=== PATIENT | male | born 1950 | race Caucasian/White ===

== ENCOUNTER 2024-01-10 15:58 | Inpatient (IN) | payer OTHER, MEDICAID ==
[~2024-01-10] VITALS: Ht 170.2 cm; Wt 81.7 kg
[2024-01-10 16:21] VITALS: BP 154/67; PULSE 67; RESP 18; TEMP 98.6; O2SAT 99
[2024-01-10] MEDS ORDERED: SERT100T PO (16:52)
[2024-01-10] MEDS ORDERED: MEMA5TAB15 PO (16:52)
[2024-01-10] MEDS ORDERED: ATOR40TA40 PO (16:52)
[2024-01-10] MEDS ORDERED: ACET-10509 PO (16:52)
[2024-01-10] MEDS ORDERED: AMLO10TA87 PO (16:52)
[2024-01-10] MEDS ORDERED: BISA-213 RC (16:52)
[2024-01-10] MEDS ORDERED: ASPI-1822 PO (16:52)
[2024-01-10] MEDS ORDERED: FLEPED RC (16:52)
[2024-01-10] MEDS ORDERED: ACET-2619 PO (16:52)
[2024-01-10] MEDS ORDERED: MAGN400S60 PO (16:52)
[2024-01-10] MEDS ORDERED: PANT40EC PO (16:52)
[2024-01-10] MEDS ORDERED: DIVA250T PO (16:52)
[2024-01-10 17:52] LABS: BASOPHILS % (AUTO) 0.4 % (0.0-2.0); EOSINOPHILS # (AUTO) 0.5 K/uL (0-0.4); EOSINOPHILS % (AUTO) 5.2 % (0.0-4.0); HEMOGLOBIN 14.6 g/dL (12.0-18.0); LYMPHOCYTES # (AUTO) 3.3 K/uL (2.0-11.5); LYMPHOCYTES % (AUTO) 33.2 % (20.5-51.1); MEAN CORPUSCULAR HEMOGLOBIN 30 pg (27-31); MEAN CORPUSCULAR HGB CONC 32 g/dL (33-37); MEAN CORPUSCULAR VOLUME 93.9 fL (80-94); NEUTROPHILS # (AUTO) 5.1 K/uL (1.8-7.7); NEUTROPHILS % (AUTO) 51.2 % (42.2-75.2); PLATELET COUNT (AUTO) 192 K/uL (140-450); RED CELL DISTRIBUTION WIDTH 14.7 % (11.6-13.7); WHITE BLOOD COUNT (AUTO) 9.9 K/uL (4.8-10.8)
[2024-01-10 18:06] LABS: ALANINE AMINOTRANSFERASE 39 U/L (12-78); ALBUMIN 3.6 g/dL (3.4-5.0); ALKALINE PHOSPHATASE 166 U/L (50-136); ASPARTATE AMINOTRANSFERASE 26 U/L (15-37); BILIRUBIN,DIRECT 0.1 mg/dL (0.0-0.3); CREATINE KINASE, TOTAL 65 U/L (39-308); TOTAL BILIRUBIN 0.2 mg/dL (0.0-1.0); TOTAL PROTEIN, SERUM 8.3 g/dL (6.4-8.2)
[2024-01-10 18:19] LABS: LACTIC ACID 1.1 mmol/L (0.4-2.0)
[2024-01-10 18:32] LABS: CARBON DIOXIDE 27.9 mmol/L (21-32); CHLORIDE 102 mmol/L (98-107); GLUCOSE 100 mg/dL (74-106); POTASSIUM 3.9 mmol/L (3.5-5.1); SODIUM SERUM 139 mmol/L (136-145); UREA NITROGEN, BLOOD 22 mg/dL (7-18)
[2024-01-10 19:22] LABS: APPEARANCE,URINE CLEAR (CLEAR); BILIRUBIN,URINE NEGATIVE (NEGATIVE); BLOOD, URINE NEGATIVE (NEGATIVE); COLOR,URINE YELLOW (YELLOW); LEUKOCYTE ESTERASE ,URINE NEGATIVE (NEGATIVE); NITRITE, URINE POSITIVE (NEGATIVE); PROTEIN,URINE NEGATIVE (NEGATIVE); UGLUCOSE NEGATIVE (NEGATIVE); UROBILINOGEN,URINE 0.2 EU/dL (0.2 - 1)
[2024-01-10 19:34] LABS: BACTERIA,URINE FEW /HPF (None Seen); RBC,URINE 0-5 /HPF (0-5); SQUAMOUS EPITHELIAL CELL,UR 0-3 (FEW) /LPF (0-3 (FEW)); WBC,URINE 0-5 /HPF (0-5)
[2024-01-10] MEDS ORDERED: ACETAMINOPHEN 325 MG TAB PO PRN (20:10)
[2024-01-10] MEDS ORDERED: ONDANSETRON 4 MG/2 ML VIAL IVP PRN (20:10)
[2024-01-10] MEDS: NACL 0.9% 1,000 ML IV ONE (20:31)
[2024-01-10] MEDS: NACL 0.9% 1,000 ML IV SCH (20:45)
[2024-01-10] MEDS ORDERED: CRUSHER, PILL MC ONE (21:04)
[2024-01-10] MEDS: ATORVASTATIN 20 MG TAB PO SCH (21:08)
[2024-01-10] MEDS: MEMANTINE 10 MG TAB PO SCH (21:09)
[2024-01-10 21:35] VITALS: PULSE 70; RESP 18; O2SAT 97
[2024-01-11] VITALS: BP 133/65; PULSE 70; RESP 18; TEMP 97.2; O2SAT 97
[2024-01-11 04:00] VITALS: BP 125/80; PULSE 62; RESP 16; TEMP 97.4; O2SAT 95
[2024-01-11 05:42] LABS: ANION GAP 11.5 (8-16); CALCIUM 8.7 mg/dL (8.5-10.1); CARBON DIOXIDE 28.5 mmol/L (21-32); CHLORIDE 106 mmol/L (98-107); CREATININE 0.9 mg/dL (0.6-1.3); GLUCOSE 75 mg/dL (74-106); SODIUM SERUM 142 mmol/L (136-145); UREA NITROGEN, BLOOD 19 mg/dL (7-18)
[2024-01-11 05:47] LABS: BASOPHILS % (AUTO) 0.5 % (0.0-2.0); EOSINOPHILS # (AUTO) 0.4 K/uL (0-0.4); EOSINOPHILS % (AUTO) 5.6 % (0.0-4.0); HEMATOCRIT 39.9 % (36-52); LYMPHOCYTES # (AUTO) 2.9 K/uL (2.0-11.5); LYMPHOCYTES % (AUTO) 36.8 % (20.5-51.1); MEAN CORPUSCULAR HEMOGLOBIN 30 pg (27-31); MEAN CORPUSCULAR HGB CONC 33 g/dL (33-37); MEAN CORPUSCULAR VOLUME 92.2 fL (80-94); MONOCYTES # (AUTO) 0.9 K/uL (0.8-1.0); MONOCYTES % (AUTO) 11.5 % (1.7-9.3); NEUTROPHILS # (AUTO) 3.6 K/uL (1.8-7.7); NEUTROPHILS % (AUTO) 45.6 % (42.2-75.2); PLATELET COUNT (AUTO) 188 K/uL (140-450); RED BLOOD CELL COUNT(AUTO) 4.32 MIL/uL (4.20-6.10); RED CELL DISTRIBUTION WIDTH 14.2 % (11.6-13.7)
[2024-01-11 08:00] VITALS: BP 151/75; PULSE 58; RESP 20; TEMP 97.8; O2SAT 98
[2024-01-11] MEDS ORDERED: DIVALPROEX SODIUM 125 MG PO SCH (09:00)
[2024-01-11] MEDS ORDERED: PANTOPRAZOLE 40 MG TABEC PO SCH (09:00)
[2024-01-11] MEDS: ASPIRIN 81 MG TAB.CHEW PO SCH (09:52)
[2024-01-11] MEDS: DIVALPROEX SPRINKLES 125 MG CAPDR PO SCH (09:53)
[2024-01-11] MEDS: amLODIPine 5 MG TAB PO SCH (09:53)
[2024-01-11] MEDS: PANTOPRAZOLE 40 MG TABEC PO SCH (09:53)
[2024-01-11 12:00] VITALS: TEMP 98
[2024-01-11 16:00] VITALS: BP 138/82; PULSE 64; RESP 20; TEMP 99.2; O2SAT 97
[2024-01-11 20:00] VITALS: BP 137/73; PULSE 67; RESP 18; TEMP 97.6; O2SAT 96
[2024-01-12 04:00] VITALS: BP 128/62; PULSE 60; RESP 18; TEMP 96.9; O2SAT 95
[2024-01-12 05:31] LABS: BASOPHILS % (AUTO) 0.4 % (0.0-2.0); EOSINOPHILS # (AUTO) 0.4 K/uL (0-0.4); EOSINOPHILS % (AUTO) 4.8 % (0.0-4.0); HEMATOCRIT 38.8 % (36-52); HEMOGLOBIN 12.8 g/dL (12.0-18.0); LYMPHOCYTES # (AUTO) 3.8 K/uL (2.0-11.5); LYMPHOCYTES % (AUTO) 41.8 % (20.5-51.1); MEAN CORPUSCULAR HEMOGLOBIN 30 pg (27-31); MEAN CORPUSCULAR HGB CONC 33 g/dL (33-37); MEAN CORPUSCULAR VOLUME 91.9 fL (80-94); MONOCYTES # (AUTO) 0.9 K/uL (0.8-1.0); MONOCYTES % (AUTO) 10.4 % (1.7-9.3); NEUTROPHILS # (AUTO) 3.9 K/uL (1.8-7.7); NEUTROPHILS % (AUTO) 42.6 % (42.2-75.2); PLATELET COUNT (AUTO) 198 K/uL (140-450); RED BLOOD CELL COUNT(AUTO) 4.22 MIL/uL (4.20-6.10); RED CELL DISTRIBUTION WIDTH 14.4 % (11.6-13.7); WHITE BLOOD COUNT (AUTO) 9.1 K/uL (4.8-10.8)
[2024-01-12 05:46] LABS: ANION GAP 11.8 (8-16); CALCIUM 9.1 mg/dL (8.5-10.1); CARBON DIOXIDE 27.9 mmol/L (21-32); CHLORIDE 104 mmol/L (98-107); GLUCOSE 85 mg/dL (74-106); POTASSIUM 3.7 mmol/L (3.5-5.1); SODIUM SERUM 140 mmol/L (136-145); UREA NITROGEN, BLOOD 20 mg/dL (7-18)
[2024-01-12 08:00] VITALS: BP 153/83; PULSE 60; RESP 20; TEMP 97.4; O2SAT 95
[2024-01-12 12:00] VITALS: BP 153/83; PULSE 60; RESP 20; TEMP 97.4; O2SAT 95
[2024-01-12 16:00] VITALS: BP 155/85; PULSE 66; RESP 20; TEMP 97.6; O2SAT 98
[2024-01-12 20:00] VITALS: BP 140/76; PULSE 62; PULSE 65; PULSE 76; RESP 18; RESP 20; TEMP 98.9; O2SAT 97
[2024-01-13] VITALS: BP 139/70; PULSE 72; RESP 19; TEMP 97.5; O2SAT 99
[2024-01-13 04:00] VITALS: BP 145/75; PULSE 76; RESP 18; TEMP 98.5; O2SAT 99
[2024-01-13 08:00] VITALS: BP 173/88; PULSE 58; RESP 16; TEMP 97.8; O2SAT 96
[2024-01-13] MEDS: CLONIDINE HYDROCHLORIDE 0.1 MG TAB PO ONE (11:53)
[2024-01-13 14:00] VITALS: BP 166/84; PULSE 70; RESP 18; TEMP 97.7; O2SAT 96
[2024-01-13 14:45] VITALS: BP 146/94; PULSE 70; RESP 18; TEMP 97.2
== END 2024-01-13 17:00 | DRG 641 ==
LOC: MED 15:58 → MMU 20:10 → MTU 21:04
PROVIDERS: ADMIT Family Medicine; ATTEND Family Medicine
DX: E86.0 Dehydration (principal); E44.0 Moderate protein-calorie malnutrition; R62.7 Adult failure to thrive; I10 Essential (primary) hypertension; E78.5 Hyperlipidemia, unspecified; F03.90 Unspecified dementia, unspecified severity, without behavioral disturbance, psychotic disturbance, mood disturbance, and anxiety; Z68.28 Body mass index [BMI] 28.0-28.9, adult; Z79.82 Long term (current) use of aspirin; Z79.899 Other long term (current) drug therapy; Z86.73 Personal history of transient ischemic attack (TIA), and cerebral infarction without residual deficits
CPT/HCPCS: 36415; 71045; 80048; 80076; 81001; 82550; 82553; 83605; 83874; 83880; 84484; 85025; 87081; 93005; 96360; 97116; 97163-GP; 99285